=== PATIENT | female | born 1980 | race Hispanic/Latino ===

== ENCOUNTER 2017-11-30 10:25 | Emergency (ER) | payer BC, OTHER ==
[~2017-11-30] VITALS: Ht 167.6 cm; Wt 56.2 kg
[2017-11-30] MEDS ORDERED: ASPIRIN 325 MG TAB PO ONE (11:00)
[2017-11-30] MEDS ORDERED: ALBUTEROL/IPRATROPIUM 3 ML NEB NEB ONE (11:00)
[2017-11-30 11:29] LABS: BASOPHILS % 0.5 % (0.0-1.0); EOSINOPHILS # (AUTO) 0.3 (0.0-0.4); EOSINOPHILS % 4.4 % (0.0-6.0); HEMATOCRIT 41.4 % (34.2-44.1); HEMOGLOBIN 13.9 g/dL (12.0-16.0); LYMPHOCYTES # (AUTO) 1.8 (1.0-3.2); LYMPHOCYTES % 27.4 % (18.0-39.1); MEAN CORPUSCULAR HEMOGLOBIN 29.6 pg (28-32); MEAN CORPUSCULAR HGB CONC 33.6 g/dL (31-35); MEAN CORPUSCULAR VOLUME 88.1 fL (81-99); MONOCYTES # (AUTO) 0.5 (0.2-0.8); MONOCYTES % 7.3 % (4.4-11.3); NEUTROPHILS # (AUTO) 3.9 (2.1-6.9); NEUTROPHILS % 60.1 % (38.7-80.0); PLATELET COUNT 144 x10e3/uL (140-360); RED CELL DISTRIBUTION WIDTH 13.2 % (11.7-14.4)
[2017-11-30 11:31] LABS: PREGNANCY TEST, URINE NEGATIVE (NEGATIVE)
[2017-11-30 11:33] LABS: CLARITY,URINE SL CLOUDY (CLEAR); COLOR,URINE YELLOW (YELLOW)
[2017-11-30 11:34] LABS: BILIRUBIN,URINE NEGATIVE (NEGATIVE); KETONES,URINE NEGATIVE (NEGATIVE); LEUKOCYTE ESTERASE ,URINE 1+ (NEGATIVE); NITRITE,URINE NEGATIVE (NEGATIVE); PROTEIN,URINE DIPSTICK NEGATIVE (NEGATIVE); URINE UROBILINOGEN 0.2 mg/dL (0.2 - 1)
[2017-11-30 11:45] LABS: BACTERIA,URINE RARE /HPF; EPITHELIAL CELLS,URINE MODERATE /LPF
[2017-11-30 11:46] LABS: ALBUMIN 4.4 g/dL (3.5-5.0); ALBUMIN/GLOBULIN RATIO 1.3 (0.8-2.0); ALKALINE PHOSPHATASE 61 IU/L (40-150); ANION GAP 10.9 mmol/L (8-16); BLOOD UREA NITROGEN 10 mg/dL (7-26); BUN/CREATININE RATIO 13 (6-25); CALCIUM 9.6 mg/dL (8.4-10.2); CARBON DIOXIDE 27 mmol/L (22-29); CHLORIDE 105 mmol/L (98-107); CREATININE, SERUM 0.78 mg/dL (0.57-1.11); EST GLOMERULAR FILTRATION RATE > 60 ML/MIN (60-); GLUCOSE 84 mg/dL (74-118); POTASSIUM 3.9 mmol/L (3.5-5.1); SODIUM 139 mmol/L (136-145)
[2017-11-30 11:47] LABS: ALANINE AMINOTRANSFERASE < 6 IU/L (0-55)
--- NOTE | 2017-11-30 13:21 | Diagnostic Imaging Report ---
PROCEDURE: CT scan of the chest WITH intravenous contrast, using PE protocol. TECHNIQUE: The chest was scanned utilizing a multidetector helical scanner from the lung apex through the level of the adrenal glands after the IV administration of 100 cc of Isovue 370, with special concentration of the pulmonary arteries. Coronal and sagittal multiplanar reformations were obtained. COMPARISON: None. INDICATIONS: CHEST PAIN, SHORTNESS OF BREATH FINDINGS: Lines/tubes: None. Lungs and Airways: No filling defects in the main, right or left pulmonary arteries or segmental level to suggest pulmonary embolism. Mild apical pleural-parenchymal scarring. No pulmonary nodules, masses, opacities or consolidation. Airways are clear, without endobronchial lesions. Pleura: The pleural spaces are clear. Heart and mediastinum: The thyroid gland is normal. The heart and pericardium are within normal limits. Lymph nodes: No mediastinal, hilar or axillary lymphadenopathy. Abdomen: Limited contrast-enhanced views of the upper abdomen show no abnormality within the visualized liver, spleen, pancreas, or kidneys. The adrenal glands are normal. Bones: No aggressive lytic lesion. Soft tissues are unremarkable. IMPRESSION: 1. no CT evidence of pulmonary embolism. 2. Essentially unremarkable chest CT. Bk French M.D. Dictated by: Bk French M.D. on 11/30/2017 at 13:23 Electronically approved by: Bk French M.D. on 11/30/2017 at 13:23
[2017-11-30] MEDS ORDERED: SODIUM CHLORIDE 0.9% 50ML 50 ML ONE (13:50)
[2017-11-30] MEDS ORDERED: IOPAMIDOL 370 MG/ML 200 ML INFUS..BTL INJ ONE (13:51)
[2017-11-30] MEDS ORDERED: PROAIR HFA INH8.5 GM INH (14:21)
[2017-11-30 14:39] VITALS: BP 101/65
--- NOTE | 2017-11-30 18:34 | Cardiology Report ---
DATE OF STUDY: November 30, 2017 DOPPLER SCAN OF THE RIGHT LEG VEINS ATTENDING PHYSICIAN: Dr. Ja Torres. The right leg veins were interrogated using the duplex scanning method. The study is suboptimal with several areas poorly visualized and interrogated. Deep venous thrombosis in these areas cannot be excluded. In the areas well interrogated, no definite deep venous thrombosis could be identified. CONCLUSION: 1. Suboptimal study with poor visualization and poor interrogation in several areas. 2. No definite deep venous thrombosis could be identified. 3. The left leg was not studied. RECOMMENDATION: If clinically indicated, consider repeat study. Job#: [id number] EV cc: JA TORRES DO
== END 2017-11-30 14:44 | disposition home or self-care (01) ==
LOC: ER 10:25
DX: R06.09 Other forms of dyspnea (principal); R07.89 Other chest pain; Z86.718 Personal history of other venous thrombosis and embolism
CPT/HCPCS: 36415; 71260; 80053; 81001; 81025; 83880; 84484; 85025; 93005; 93971; 99284; Q9967